=== PATIENT | female | born 1950 | race Caucasian/White ===

== ENCOUNTER 2017-08-06 01:49 | Emergency (ER) | payer MEDICARE ==
[~2017-08-06] VITALS: Ht 167.6 cm; Wt 125.0 kg
[~2017-08-06 01:49] MED LIST: ALLO300T2 PO; AMLO2.5T PO; ATOR20TA15 PO; CRAN1CHW; GLIP1TAB51 PO; METF1000 PO; OXYB10TA PO; POTA10CA PO; SYNT25TA PO; VICT18IN SQ; VITA500T4 PO; losartan-hctz PO
[2017-08-06 01:51] VITALS: BP 203/86; PULSE 103; RESP 18; TEMP 97.9; O2SAT 99
[2017-08-06 02:06] VITALS: BP 181/80; PULSE 102; RESP 18; O2SAT 99
[2017-08-06] MEDS ORDERED: OXYB5TAB8 PO (02:11)
[2017-08-06] MEDS ORDERED: SODIUM CHLORIDE 0.9% FLUSH 10 ML FLUSH IVF PRN (02:30)
[2017-08-06 02:57] LABS: AUTOMATED NEUTROPHIL # 4.3 TH/MM3 (1.8-7.7); BASOPHIL % 0.4 % (0.0-2.0); EOSINOPHIL # 0.1 TH/MM3 (0-0.4); HEMOGLOBIN 9.5 GM/DL (11.6-15.3); LYMPH % 15.9 % (9.0-44.0); LYMPHOCYTE # 0.9 TH/MM3 (1.0-4.8); MEAN CELL VOLUME 80.4 FL (80.0-100.0); MEAN CORPUSCULAR HEMOGLOBIN 26.5 PG (27.0-34.0); MEAN CORPUSCULAR HGB CONC 32.9 % (32.0-36.0); MEAN PLATELET VOLUME 7.6 FL (7.0-11.0); MONO % 6.1 % (0.0-8.0); MONOCYTE # 0.3 TH/MM3 (0-0.9); NEUT % 75.6 % (16.0-70.0); PLATELET COUNT 275 TH/MM3 (150-450); RED CELL DISTRIBUTION WIDTH 17.2 % (11.6-17.2); WHITE BLOOD COUNT 5.7 TH/MM3 (4.0-11.0)
[2017-08-06 03:27] LABS: TROPONIN I LESS THAN 0.02 NG/ML (0.02-0.05)
[2017-08-06 03:31] LABS: BICARBONATE 23.8 MEQ/L (21.0-32.0); BLOOD UREA NITROGEN 29 MG/DL (7-18); CALCIUM 9.2 MG/DL (8.5-10.1); CHLORIDE 109 MEQ/L (98-107); CREATININE 1.13 MG/DL (0.50-1.00); GLOMERULAR FILTRATION RATE 48 ML/MIN (>89); GLUCOSE,RANDOM 119 MG/DL (74-106); SODIUM (NA) 142 MEQ/L (136-145)
--- NOTE | 2017-08-06 03:40 | PD ---
HPI . Dizziness Chief Complaint: Dizziness Time Seen by Provider: 02:19 Travel History International Travel<30 days: No Contact w/Intl Traveler<30days: No Traveled to known affect area: No History of Present Illness HPI Patient presents with the chief complaint of lightheadedness. Onset was a couple of hours ago. She does not describe vertigo. When asked to describe exactly how it felt she states that it is just a lightheadedness. She was unable to further qualify. Her symptoms are exacerbated by walking a distance. No relieving factors. She is concerned about possible anemia or hypoglycemia. She also states that many of her family members have required pacemakers. So, she is concerned about that. She has a history of anemia, diabetes and hypertension. 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 [facility] Past Medical History Anemia: Yes Blood Disorders: Yes (ROSAI-MATY) Diabetes: Yes Patient Takes Glucophage: No Diminished Hearing: No Hypertension: Yes Immunizations Current: Yes Past Surgical History Abdominal Surgery: Yes (LEFT KIDNEY, 5X ABD BIOPSY) Section: Yes (X2) Other Surgery: Yes (LUMP LEFT AXILLA REMOVED) Social History Alcohol Use: No Tobacco Use: No Substance Use: No Allergies-Medications (Allergen,Severity, Reaction): Coded Allergies: Tetanus Vaccines and Toxoid (Verified Allergy, Severe, Hives, 08/06/17) Reported Meds & Prescriptions Reported Meds & Active Scripts Active [losartan-hctz] 100-25 Tab 1 Tab PO DAILY PRN Victoza Inj (Liraglutide Inj) 18 Mg/3 Ml Pen 0.6 Mg SQ HS Glipizide ER (Glipizide) 10 Mg Ayanna 10 Mg PO DAILY Take with breakfast or first main meal of the day Atorvastatin (Atorvastatin Calcium) 20 Mg Tab 20 Mg PO HS Amlodipine (Amlodipine Besylate) 2.5 Mg Tab 2.5 Mg PO DAILY Synthroid (Levothyroxine Sodium) 25 Mcg Tab 25 Mcg PO DAILY Metformin (Metformin HCl) 1,000 Mg Tab 1,000 Mg PO BIDPC Reported Ditropan (Oxybutynin Chloride) 5 Mg Tab 20 Mg PO Q12HR Allopurinol 300 Mg Tab 300 Mg PO DAILY Vitamin B-12 (Cyanocobalamin) 500 Mcg Tab 2,000 Mcg PO DAILY Cranberry Soft Chews (Cranberry (Vaccinium Macrocarpon)) 500 Mg Chew 500 Potassium Chloride ER (Potassium Chloride) 10 Meq Cap 10 Meq PO BID Review of Systems Except as stated in HPI: all other systems reviewed are Neg General / Constitutional: No: Fever, Chills Eyes: No: Blurred Vision HENT: Positive: Lightheadedness, No: Headaches, Vertigo Physical Exam Narrative GENERAL: Awake and alert and in no acute distress. SKIN: warm/dry. HEAD: Normocephalic. Atraumatic. EYES: Pupils equal and round. No scleral icterus. No injection or drainage. ENT: No nasal bleeding or discharge. Mucous membranes pink and moist. NECK: Trachea midline. Full range of motion without pain.. CARDIOVASCULAR: Regular rate and rhythm. Heart sounds are normal. RESPIRATORY: No accessory muscle use. Clear to auscultation. Breath sounds equal bilaterally. GASTROINTESTINAL: Abdomen soft. Nontender. Bowel sounds present. Nondistended. MUSCULOSKELETAL: No obvious deformities. NEUROLOGICAL: Awake and alert. No obvious cranial nerve deficits. Motor grossly within normal limits. Normal speech. PSYCHIATRIC: Appropriate mood and affect; insight and judgment normal. Data Data Last Documented VS Vital Signs Date Time Temp Pulse Resp B/P (MAP) Pulse Ox O2 Delivery O2 Flow Rate FiO2 08/06/17 02:06 102 18 181/80 (113) 99 Room Air 08/06/17 01:51 97.9 Orders Orders Basic Metabolic Panel (Bmp) (08/06/17 02:20) Complete Blood Count With Diff (08/06/17 02:20) Ecg Monitoring (08/06/17 02:20) Iv Access Insert/Monitor (08/06/17 02:20) Oximetry (08/06/17 02:20) Sodium Chloride 0.9% Flush (Ns Flush) (08/06/17 02:30) Troponin I (08/06/17 02:25) Labs Laboratory Tests Test 08/06/17 02:25 White Blood Count 5.7 TH/MM3 Red Blood Count 3.60 MIL/MM3 Hemoglobin 9.5 GM/DL Hematocrit 29.0 % Mean Corpuscular Volume 80.4 FL Mean Corpuscular Hemoglobin 26.5 PG Mean Corpuscular Hemoglobin Concent 32.9 % Red Cell Distribution Width 17.2 % Platelet Count 275 TH/MM3 Mean Platelet Volume 7.6 FL Neutrophils (%) (Auto) 75.6 % Lymphocytes (%) (Auto) 15.9 % Monocytes (%) (Auto) 6.1 % Eosinophils (%) (Auto) 2.0 % Basophils (%) (Auto) 0.4 % Neutrophils # (Auto) 4.3 TH/MM3 Lymphocytes # (Auto) 0.9 TH/MM3 Monocytes # (Auto) 0.3 TH/MM3 Eosinophils # (Auto) 0.1 TH/MM3 Basophils # (Auto) 0.0 TH/MM3 CBC Comment DIFF FINAL Differential Comment Blood Urea Nitrogen 29 MG/DL Creatinine 1.13 MG/DL Random Glucose 119 MG/DL Calcium Level 9.2 MG/DL Sodium Level 142 MEQ/L Potassium Level 4.5 MEQ/L Chloride Level 109 MEQ/L Carbon Dioxide Level 23.8 MEQ/L Anion Gap 9 MEQ/L Estimat Glomerular Filtration Rate 48 ML/MIN Troponin I LESS THAN 0.02 NG/ML MDM Medical Decision Making Medical Screen Exam Complete: Yes Emergency Medical Condition: Yes Interpretation(s) EKG shows a sinus rhythm with a rate of 94. No acute ischemic changes. Differential Diagnosis Differential diagnosis of dizziness includes but is not limited to vertigo, dehydration, acute blood loss, sepsis, ACS Narrative Course This patient presents complaining with dizziness which she describes as lightheadedness. Her physical exam is unremarkable. CBC & BMP Diagram 08/06/17 02:25 Calcium Level 9.2 trop < 0.02 This patient presented with a chief complaint of lightheadedness. Her physical exam is unremarkable. Her laboratory evaluation is unremarkable. Her H&H is stable. She will be discharged home. Diagnosis Primary Impression: Dizziness Patient Instructions: Dizziness (ED), General Instructions Additional Instructions: Follow-up with your family physician if your symptoms continue. Disposition: 01 DISCHARGE HOME Condition: Stable Swapna Rivers MD Aug 06, 2017 03:40
--- NOTE | 2017-08-06 15:30 | EKG ---
Date Performed: 08/06/2017 Time Performed: 02:07:38 PTAGE: 67 years EKG: Sinus rhythm BORDERLINE LEFT AXIS DEVIATION BORDERLINE ECG NO PREVIOUS TRACING DOCTOR: Torin Beck Interpretating Date/Time 08/06/2017 15:22:47
== END 2017-08-06 03:55 | disposition home or self-care (01) ==
LOC: NEPE 01:49
DX: R42 Dizziness and giddiness (principal); E11.9 Type 2 diabetes mellitus without complications; I10 Essential (primary) hypertension; Z79.84 Long term (current) use of oral hypoglycemic drugs
CPT/HCPCS: 80048; 84484; 85025; 93005; 99284

== ENCOUNTER → 2017-10-14 | Outpatient (CLI) | payer MEDICARE ==
[~2017-10-14] MED LIST changes: -OXYB10TA PO; +OXYB5TAB8 PO
[2017-10-14 11:21] LABS: PROTHROMBIN TIME - PATIENT 10.3 SEC (9.8-11.6)
[2017-10-14 13:54] LABS: AUTOMATED NEUTROPHIL # 3.7 TH/MM3 (1.8-7.7); BASOPHIL % 0.6 % (0.0-2.0); EOSINOPHIL # 0.1 TH/MM3 (0-0.4); EOSINOPHIL % 2.7 % (0.0-4.0); HEMATOCRIT 29.7 % (35.0-46.0); HEMOGLOBIN 9.5 GM/DL (11.6-15.3); LYMPH % 17.2 % (9.0-44.0); LYMPHOCYTE # 0.9 TH/MM3 (1.0-4.8); MEAN CELL VOLUME 80.2 FL (80.0-100.0); MEAN CORPUSCULAR HEMOGLOBIN 25.7 PG (27.0-34.0); MEAN CORPUSCULAR HGB CONC 32.1 % (32.0-36.0); MEAN PLATELET VOLUME 7.6 FL (7.0-11.0); MONO % 6.4 % (0.0-8.0); MONOCYTE # 0.3 TH/MM3 (0-0.9); NEUT % 73.1 % (16.0-70.0); PLATELET COUNT 330 TH/MM3 (150-450); RED CELL DISTRIBUTION WIDTH 17.8 % (11.6-17.2); WHITE BLOOD COUNT 5.1 TH/MM3 (4.0-11.0)
== END ==
LOC: PLAB 10:18
PROVIDERS: ATTEND Internal Medicine Interventional Cardiology
DX: I31.3 Pericardial effusion (noninflammatory) (principal); I11.9 Hypertensive heart disease without heart failure; Z86.2 Personal history of diseases of the blood and blood-forming organs and certain disorders involving the immune mechanism
CPT/HCPCS: 36415; 85025; 85610

== ENCOUNTER 2017-10-17 09:54 | Day surgery (SDC) | payer MEDICARE ==
[~2017-10-17] VITALS: Ht 165.1 cm; Wt 124.5 kg
[2017-10-17] MEDS ORDERED: LIDOCAINE HCL 1% 10 ML VIAL SQ ONE (09:55)
[2017-10-17] MEDS ORDERED: FERR200T PO (10:15)
[2017-10-17] MEDS ORDERED: AMLO5TAB2 PO (10:15)
[2017-10-17 10:27] VITALS: BP 155/90; PULSE 75; RESP 22; TEMP 97.9; O2SAT 95
[2017-10-17] MEDS ORDERED: MIDAZOLAM HCL 5 MG/5 ML VIAL ONE (13:53)
[2017-10-17] MEDS ORDERED: fentaNYL CITRATE 250 MCG/5 ML AMP ONE (13:55)
[2017-10-17] MEDS ORDERED: ONDANSETRON HCL 4 MG/2 ML VIAL ONE (13:55)
--- NOTE | 2017-10-17 14:46 | PD.RAD ---
Post CT Procedure Prog Note Procedure Date: Oct 17, 2017 Supervising Radiologist: Lex Marin Anesthesia: Conscious Sedation Plan of Activity Patient to Unit: ROPU Patient Condition: Good See PACS Report for procedural detail/treatment Lex Marin MD Oct 17, 2017 14:46
[2017-10-17 15:15] VITALS: BP 128/71; PULSE 100; RESP 18; TEMP 97.2; O2SAT 95
[2017-10-17 15:30] VITALS: BP 127/72; PULSE 98; RESP 19; O2SAT 97
[2017-10-17 16:00] VITALS: BP 142/78; PULSE 74; RESP 18; O2SAT 97
[2017-10-17 19:48] LABS: PERICARDIAL HISTIOCYTES 1 %; PERICARDIAL LYMPHS 73 %; PERICARDIAL MESOTHELIAL 9 %; PERICARDIAL MONOS 8 %; PERICARDIAL POLYS(SEGS) 9 %
[2017-10-17 19:50] LABS: PERICARDIAL RBC 309 /MM3 (0-0); PERICARDIAL WBC 433 /MM3 (0-10)
--- NOTE | 2017-10-18 10:38 | RADRPT ---
EXAM DATE: 10/17/2017 3:10 PM EDT AGE/SEX: 67 years / Female INDICATIONS: Pericardiocentesis. CLINICAL DATA: This is the patient's initial encounter. Patient reports that signs and symptoms have been present for 1 day and indicates a pain score of 0/10. MEDICAL/SURGICAL HISTORY: Diabetes mellitus type II. pericardial effusion None. COMPARISON: No prior exams available for comparison. SEDATION TIME (min): BIOPSY SITE: pericardial fluid MEDICATION(S): 3mg midazolam (Versed) IV 150mcg fentanyl (Sublimaze) IV DEVICE(S): 6 Fr Skater FLUID: Total volume of 650 of cloudy, yellow fluid was removed. Fluid was sent to lab for ordered studies.. . . PROCEDURE : CT guided drainage of the pericardial fluid. The risks, benefits and alternatives to the procedure were explained and verbal and written consent w as obtained. Using automated exposure control and adjustment of the mA and/or kV according to patient size, radiation dose was kept as low as reasonably achievable to obtain optimal diagnostic quality i mages. The site was prepped in sterile fashion. Full sterile technique was used, including cap, ma sk, sterile gloves and gown and a large sterile sheet. Hand hygiene and 2% chlorhexidine and/or beta dine/alcohol prep was utilized per protocol for cutaneous antisepsis. The skin and subcutaneous tiss ues were infiltrated with local anesthetic solution. DICOM format image data is available electronic ally for review and comparison. Using CT guidance the prescribed site was localized. Drainage was performed using the prescribed cat heter. The patient tolerated the procedure well and there were no complications. The patient tolerated the procedure well and there were no complications. The patient was sent to post anesthesia recovery in s table condition. FINDINGS: Approximately 650 mL of straw-colored fluid was removed. Postprocedure CT exam demonstrates no signif icant residual pericardial effusion. CONCLUSION: 1. Uncomplicated CT guided pericardiocentesis with removal of 650 cc of straw-colored fluid. 2. No significant residual pericardial effusion following aspiration. Electronically signed by: Lex Marin MD 10/18/2017 10:37 AM EDT
== END 2017-10-17 17:18 | disposition home or self-care (01) ==
LOC: HRAD 09:54 → HRIP 09:55 → HRAD 17:18
PROVIDERS: ATTEND Internal Medicine Interventional Cardiology
DX: I31.3 Pericardial effusion (noninflammatory) (principal); E11.8 Type 2 diabetes mellitus with unspecified complications; Z79.84 Long term (current) use of oral hypoglycemic drugs
CPT/HCPCS: 33010; 77012; 82945; 83615; 83986; 84157; 84315; 87015; 87070; 87102; 87116; 87205; 87206; 89051; 99152; 99153; C1729; C1769; J2250; J2405; J3010